=== PATIENT | male | born 1980 | race Caucasian/White ===

== ENCOUNTER 2018-01-28 08:57 | Emergency (ER) | payer OTHER ==
[~2018-01-28] VITALS: Wt 81.6 kg
[~2018-01-28 08:57] MED LIST: MELOXICAM7.5 MG PO; MORPHINE SULFAT30 M7 PO; PEN-VEE K500 MG PO; SEPTRA DS 800 M1 TAB PO; TRAMADOL HCL50 MG PO
[2018-01-28] MEDS ORDERED: NAPROSYN500 MG PO (09:30)
== END 2018-01-28 10:29 | disposition home or self-care (01) ==
LOC: ED 08:57
DX: G89.29 Other chronic pain (principal); M54.42 Lumbago with sciatica, left side; K40.90 Unilateral inguinal hernia, without obstruction or gangrene, not specified as recurrent; E66.9 Obesity, unspecified; F17.200 Nicotine dependence, unspecified, uncomplicated; Z79.899 Other long term (current) drug therapy; Z88.8 Allergy status to other drugs, medicaments and biological substances

== ENCOUNTER → 2018-02-10 | Outpatient (CLI) | payer OTHER ==
[~2018-02-10] MED LIST changes: +NAPROSYN500 MG PO
== END ==
LOC: RESCLI 01:13
DX: M54.41 Lumbago with sciatica, right side (principal); M54.42 Lumbago with sciatica, left side; R10.32 Left lower quadrant pain; G89.29 Other chronic pain; R03.0 Elevated blood-pressure reading, without diagnosis of hypertension; Z72.0 Tobacco use

== ENCOUNTER 2020-03-06 05:36 | Emergency (ER) | payer SELFPAY | END 2020-03-06 08:29 | disposition left against medical advice (07) | LOC: ED 05:36 | DX: T50.901A Poisoning by unspecified drugs, medicaments and biological substances, accidental (unintentional), initial encounter (principal); R51.9 Headache, unspecified; Z88.6 Allergy status to analgesic agent; Z79.899 Other long term (current) drug therapy; Y92.89 Other specified places as the place of occurrence of the external cause ==

== ENCOUNTER 2023-06-25 14:10 | Emergency (ER) | payer OTHER ==
[~2023-06-25] VITALS: Ht 175.2 cm; Wt 87.1 kg
[2023-06-25] MEDS ORDERED: DOXEPIN50 MG PO (14:24)
[2023-06-25] MEDS ORDERED: SERTRALINE HYDR25 MG PO (14:24)
[2023-06-25] MEDS ORDERED: PALIPERIDONE ER3 MG PO (14:25)
[2023-06-25] MEDS ORDERED: TAMSULOSIN HCL0.4 MG PO (14:25)
[2023-06-25] MEDS ORDERED: BUSPIRONE30 MG PO (14:26)
[2023-06-25] MEDS ORDERED: SYMB80 INH (14:27)
[2023-06-25] MEDS ORDERED: ADVAIR HFA 115-12 GM INH (14:28)
[2023-06-25 15:05] LABS: BILIRUBIN Negative (Negative); BLOOD Negative (Negative); CLARITY Clear (Clear); COLOR Yellow (Yellow); GLUCOSE Negative (Negative); KETONE Negative (Negative); LEUKO ESTERASE Negative (Negative); NITRITE Negative (Negative); SPECIFIC GRAVITY <= 1.005 (1.001-1.030); UROBILINOGEN 0.2 E.U./dl (0.0-1.0)
[2023-06-25 15:13] LABS: BASO # 0.1 10*3/uL (0.0-0.1); BASO % 0.7 % (0.0-1.0); EOS # 0.2 10*3/uL (0.0-0.4); EOS % 1.6 % (1.0-4.0); HEMATOCRIT 45.9 % (42.0-52.0); LYMPH # 2.2 10*3/uL (1.3-4.4); LYMPH % 22.7 % (27.0-41.0); MEAN CELL VOLUME 97.5 fl (80.0-94.0); MEAN CORPUSCULAR HGB 30.8 pg (27.0-31.0); MEAN CORPUSCULAR HGB CONC 31.6 g/dl (33.0-37.0); MEAN PLATELET VOLUME 9.5 fl (9.6-12.3); MONO # 0.7 10*3/uL (0.1-1.0); MONO % 7.1 % (3.0-9.0); NEUT # 6.6 10*3/uL (2.3-7.9); NEUT % 67.6 % (47.0-73.0); PLATELET COUNT AUTOMATED 330 10*3/uL (130-400); RED BLOOD COUNT 4.71 10*6/uL (4.50-5.90); RED CELL DISTRI WIDTH 13.9 % (0-14.5); WHITE BLOOD COUNT 9.8 10*3/uL (4.8-10.8)
[2023-06-25 15:13] LABS: URINE AMPHETAMINES Negative (1000ng/ml); URINE BARBITURATES Negative (200ng/ml); URINE BENZODIAZEPINES Negative (200ng/ml); URINE CANNABINOIDS (THC) Positive (50ng/ml); URINE COCAINE Negative (300ng/ml); URINE METHADONE Negative (300ng/ml); URINE OPIATES Negative (300ng/ml); URINE PHENCYCLIDINE Negative (25ng/ml)
[2023-06-25 15:26] LABS: ACT PARTIAL THROMBO TIME 29.3 SECONDS (20.0-32.1)
[2023-06-25 15:28] LABS: ALKALINE PHOSPHATASE 78 U/L (46-116); BUN 8 mg/dl (9-23); CHLORIDE 106 mmol/L (98-107); LIPASE 30 U/L (12-53); POTASSIUM 4.1 mmol/L (3.4-5.1); SGPT/ALT 120 U/L (5-49); TOTAL PROTEIN 7.5 gm/dL (6.0-8.0)
[2023-06-25 15:32] LABS: WBC 0-2 wbc/hpf (0-5)
[2023-06-25 15:36] LABS: ETHYL ALCOHOL < 3.0 mg/dl (<3)
== END 2023-06-25 16:28 | disposition home or self-care (01) ==
LOC: ED 14:10
PROVIDERS: Emergency Medicine
DX: F11.10 Opioid abuse, uncomplicated (principal); Z88.6 Allergy status to analgesic agent; Z79.899 Other long term (current) drug therapy